=== PATIENT | male | born 1990 | race Caucasian/White ===

== ENCOUNTER 2018-04-06 21:51 | Emergency (ER) | payer MEDICAID, OTHER ==
[~2018-04-06] VITALS: Ht 177.8 cm; Wt 71.9 kg
[2018-04-06 21:53] VITALS: BP 123/68
--- NOTE | 2018-04-06 22:03 | NUR ---
pt here for left wrist pain. Pt reports falling over and putting his arm out to stop his fall. cms intact and no obivious deformity.
[2018-04-06] MEDS ORDERED: KETOROLAC 30 MG/1 ML ONE (22:06)
--- NOTE | 2018-04-06 22:08 | NUR ---
pt medicated per emar and ice applied to wrist.
[2018-04-06] MEDS ORDERED: KETOROLAC 30 MG/1 ML IM ONE (22:30)
--- NOTE | 2018-04-06 22:43 | NUR ---
Patient/Caregiver given discharge instructions and they have confirmed that they understand the instructions. Patient ambulatory with steady gait.
== END 2018-04-06 22:46 | disposition home or self-care (01) ==
LOC: ED 22:37
DX: S63.502A Unspecified sprain of left wrist, initial encounter (principal); W19.XXXA Unspecified fall, initial encounter; Y93.89 Activity, other specified; Y92.488 Other paved roadways as the place of occurrence of the external cause; Y99.8 Other external cause status
CPT/HCPCS: 29260; 73110; 96372; 99283; J1885